=== PATIENT | female | born 1965 | race Caucasian/White ===

== ENCOUNTER 2017-10-04 01:02 | Emergency (ER) | payer OTHER ==
[~2017-10-04] VITALS: Ht 170.2 cm; Wt 112.6 kg
[2017-10-04 01:18] VITALS: BP 156/90; PULSE 103; RESP 20; TEMP 98.6; O2SAT 95
[2017-10-04] MEDS ORDERED: guaiFENesin/CODEINE SYRUP 200 MG/20 MG/10 ML CUP PO ONE (01:50)
[2017-10-04 02:50] VITALS: BP 161/97
[2017-10-04] MEDS ORDERED: SYNT25TA PO (04:54)
--- NOTE | 2017-10-04 04:54 | PD ---
HPI Chief Complaint: Cold / Flu Symptoms Time Seen by Provider: 04:46 Travel History International Travel<30 days: No Contact w/Intl Traveler<30days: No Traveled to known affect area: No History of Present Illness HPI The patient is a 52-year-old female who is had a worsening cough since Thursday, 5 -6 days. She denies any fever. She does not smoke. She denies any shortness of breath. She denies any chest pain. Except for hypothyroid, she denies any major medical problems. She was seen at an urgent care Center and given Zithromax and Tessalon Perles. Neither is work so far. The cough is mostly nonproductive. REPLACED BY [facility] Social History Tobacco Use: No Allergies-Medications (Allergen,Severity, Reaction): Coded Allergies: morphine (Verified Allergy, Intermediate, Itching, 10/04/17) Review of Systems Except as stated in HPI: all other systems reviewed are Neg Physical Exam Narrative GENERAL: The patient is alert, oriented 3 in no respiratory distress. Her vital signs show blood pressure 156/98 with pulse rate of 103 but otherwise normal. SKIN: Focused skin assessment warm/dry. No skin rash is seen. HEAD: Atraumatic. Normocephalic. EYES: Pupils equal and round. No scleral icterus. No injection or drainage. ENT: No nasal bleeding or discharge. Mucous membranes pink and moist. The tympanic membranes are clear and the throat shows no erythema, exudate nor abscess. NECK: Trachea midline. No JVD. There is no meningismus present. CARDIOVASCULAR: Regular rate and rhythm. No murmur appreciated. Initially the patient had a slight sinus tachycardia and then her heart rate decreased to a normal sinus rhythm. RESPIRATORY: No accessory muscle use. Clear to auscultation. Breath sounds equal bilaterally. GASTROINTESTINAL: Abdomen soft, non-tender, nondistended. Hepatic and splenic margins not palpable. No guarding or rebound is present. MUSCULOSKELETAL: No obvious deformities. No clubbing. No cyanosis. No edema. NEUROLOGICAL: Awake and alert. No obvious cranial nerve deficits. Motor grossly within normal limits. Normal speech. PSYCHIATRIC: Appropriate mood and affect; insight and judgment normal. [facility] Medical Decision Making Medical Screen Exam Complete: Yes Emergency Medical Condition: Yes Medical Record Reviewed: Yes Interpretation(s) The PA and lateral chest x-ray shows no acute process. Differential Diagnosis Viral upper respiratory infection, pneumonia, bronchitis Narrative Course The patient has a viral upper respiratory infection. The chest x-ray is normal and her lungs are clear. Plan: She was given a prescription for Hycodan cough syrup. Amy AAMIR seemed to work very well for her cough here in the emergency department. The Hycodan cough syrup had to be handwritten because the computer was in downtime tonight. Diagnosis Primary Impression: Viral upper respiratory infection Additional Instructions: As we discussed, follow-up with her primary care physician this week-today being Thursday. Med/Other Pt SpecificInfo: Prescription(s) given Disposition: DISCHARGE HOME Condition: Stable Zach Hernandez MD Oct 04, 2017 04:54
--- NOTE | 2017-10-06 12:49 | RADRPT ---
EXAM DATE/TIME: 10/04/2017 02:04 [place] COMPARISON: No previous studies available for comparison. INDICATIONS : Cough. MEDICAL HISTORY : None. SURGICAL HISTORY : None. ENCOUNTER: Initial ACUITY: 4 - 6 days PAIN SCORE: 4/10 LOCATION: Bilateral chest FINDINGS: PA and lateral views of the chest demonstrate the lungs to be symmetrically aerated without evidence of mass, infiltrate or effusion. The cardiomediastinal contours are unremarkable. Osseous structure s are intact. CONCLUSION: No acute cardiopulmonary disease. Karthik Kessler MD on October 04, 2017 at 2:31 Board Certified Radiologist. This report was verified electronically.
== END 2017-10-04 02:50 | disposition home or self-care (01) ==
LOC: PHED 01:02
DX: J06.9 Acute upper respiratory infection, unspecified (principal)
CPT/HCPCS: 71020; 99283